=== PATIENT | male | born 1935 | race Caucasian/White ===

== ENCOUNTER 2023-01-14 22:41 | Emergency (ER) | payer OTHER ==
[2023-01-15] MEDS ORDERED: Bacitracin 1 PK ONE (00:20)
== END 2023-01-15 00:36 | disposition home or self-care (01) ==
LOC: ERS 22:41
DX: S00.03XA Contusion of scalp, initial encounter (principal); S40.811A Abrasion of right upper arm, initial encounter; S40.812A Abrasion of left upper arm, initial encounter; E11.9 Type 2 diabetes mellitus without complications; I10 Essential (primary) hypertension; F17.210 Nicotine dependence, cigarettes, uncomplicated; W18.30XA Fall on same level, unspecified, initial encounter; Y93.64 Activity, baseball
CPT/HCPCS: 70450; 72125